=== PATIENT | female | born 1945 | race Caucasian/White ===

== ENCOUNTER → 2022-04-16 | Outpatient (CLI) | payer MEDICARE ==
[~2022-04-16] MED LIST: ACEDIPPM PO; Aspirin EC81 MG PO; LISHYD1012 PO; METO10 PO; OMEP20ER PO; OMEP40CA12 PO; ONDA4 PO; Prilosec Otc20 MG; TYLENOL PM EX-1 EAC1
[2022-04-16 14:01] LABS: BASOPHILS ABSOLUTE AUTO 0.02 K/mm3 (0.00-0.23); BASOPHILS PERCENT AUTO 0 % (0-2); EOSINOPHILS ABSOLUTE AUTO 0.02 K/mm3 (0.00-0.68); EOSINOPHILS PERCENT AUTO 0 % (0-6); Hematocrit 35.4 % (33.0-51.0); Hemoglobin 11.5 g/dL (11.5-16.0); IMMATURE GRAN ABSOLUTE AUTO 0.01 K/mm3 (0.00-0.10); IMMATURE GRAN PERCENT AUTO 0 % (0-1); LYMPHOCYTES ABSOLUTE AUTO 0.61 K/mm3 (0.84-5.20); LYMPHOCYTES PERCENT AUTO 14 % (21-46); MONOCYTES ABSOLUTE AUTO 0.33 K/mm3 (0.16-1.47); MONOCYTES PERCENT AUTO 7 % (4-13); Mean Corpuscular HGB 28.9 pg (26.0-34.0); Mean Corpuscular HGB Conc 32.5 g/dL (31.5-36.5); Mean Corpuscular Volume 89 fL (80-100); Mean Platelet Volume 9.1 fL (9.1-12.4); NEUTROPHILS PERCENT AUTO 78 % (41-73); Platelet Count 168 K/mm3 (150-400); RDW Coefficient Variation 14.8 % (11.7-14.2); RDW Standard Deviation 48.8 fL (35.1-46.3); Red Blood Cell Count 3.98 M/mm3 (3.80-5.20); White Blood Cell Count 4.49 K/mm3 (4.00-11.30)
[2022-04-16 14:23] LABS: Albumin, Blood 3.6 g/dL (3.4-5.0); Albumin/Globulin Ratio 0.8 (0.8-1.8); Bilirubin, Total 0.2 mg/dL (0.1-1.0); Bun/Creatinine Ratio 15.1 (12.0-20.0); Calcium, Blood 8.8 mg/dL (8.5-10.1); Creatinine, Blood 0.73 mg/dL (0.40-1.00); Globulin, Blood 4.3 g/dL (2.2-4.0); Magnesium, Blood 1.9 mg/dL (1.6-2.4); Potassium, Blood 3.5 mmol/L (3.5-5.5); Thyroid Stimulating Hormone 1.499 uIU/mL (0.360-4.800); Total Protein, Blood 7.9 g/dL (6.4-8.2)
== END ==
LOC: LAB SHORT 13:58 → LAB 13:58
PROVIDERS: Physician Assistant
DX: R53.83 Other fatigue (principal)
CPT/HCPCS: 80053; 83735; 84443; 85025

== ENCOUNTER 2022-07-11 22:22 | Inpatient (IN) | payer MEDICARE ==
[~2022-07-11] VITALS: Ht 157.5 cm; Wt 50.8 kg
[2022-07-11 22:59] LABS: BASOPHILS ABSOLUTE AUTO 0.04 K/mm3 (0.00-0.23); BASOPHILS PERCENT AUTO 0 % (0-2); EOSINOPHILS ABSOLUTE AUTO 0.16 K/mm3 (0.00-0.68); EOSINOPHILS PERCENT AUTO 2 % (0-6); Hematocrit 33.1 % (33.0-51.0); Hemoglobin 10.9 g/dL (11.5-16.0); IMMATURE GRAN ABSOLUTE AUTO 0.02 K/mm3 (0.00-0.10); IMMATURE GRAN PERCENT AUTO 0 % (0-1); LYMPHOCYTES ABSOLUTE AUTO 0.97 K/mm3 (0.84-5.20); LYMPHOCYTES PERCENT AUTO 9 % (21-46); MONOCYTES ABSOLUTE AUTO 0.74 K/mm3 (0.16-1.47); MONOCYTES PERCENT AUTO 7 % (4-13); Mean Corpuscular HGB 29.1 pg (26.0-34.0); Mean Corpuscular HGB Conc 32.9 g/dL (31.5-36.5); Mean Corpuscular Volume 89 fL (80-100); Mean Platelet Volume 9.3 fL (9.1-12.4); NEUTROPHILS ABSOLUTE AUTO 8.35 K/mm3 (1.96-9.15); NEUTROPHILS PERCENT AUTO 81 % (41-73); Platelet Count 305 K/mm3 (150-400); RDW Coefficient Variation 14.5 % (11.7-14.2); RDW Standard Deviation 46.7 fL (35.1-46.3); Red Blood Cell Count 3.74 M/mm3 (3.80-5.20); White Blood Cell Count 10.28 K/mm3 (4.00-11.30)
[2022-07-11 23:26] LABS: Albumin, Blood 3.6 g/dL (3.4-5.0); Albumin/Globulin Ratio 0.8 (0.8-1.8); Bilirubin, Total 0.3 mg/dL (0.1-1.0); Bun/Creatinine Ratio 20.2 (12.0-20.0); Calcium, Blood 9.8 mg/dL (8.5-10.1); Creatinine, Blood 0.65 mg/dL (0.40-1.00); Globulin, Blood 4.6 g/dL (2.2-4.0); Potassium, Blood 3.8 mmol/L (3.5-5.5); Total Protein, Blood 8.2 g/dL (6.4-8.2)
[2022-07-11] MEDS ORDERED: Ventolin/Prove6.7 GM INH (23:28)
[2022-07-11] MEDS ORDERED: WIXELA 250-501 EAC1 INH (23:29)
[2022-07-11] MEDS ORDERED: ASPI500 PO (23:30)
[2022-07-11] MEDS ORDERED: BENADRYL25 MG PO (23:30)
[2022-07-11 23:54] LABS: Source, Urine Clean Catch
[2022-07-12] LABS: Bilirubin, Urine Neg (Neg); Blood, Urine 1+ (Neg); Glucose Qualitative, Urine Neg (Neg); Ketones, Urine Neg (Neg); Leukocyte Esterase, Urine 1+ (Neg); Nitrite, Urine Neg (Neg); Protein, Urine 1+ (Neg); Specific Gravity, Urine 1.015 (1.003-1.022); Urobilinogen, Urine NORM (Normal)
[2022-07-12 00:19] LABS: Color, Urine Yellow (P-Yellow)
[2022-07-12 00:20] LABS: Appearance, Urine Clear (Clear)
[2022-07-12 00:21] LABS: Bacteria Few /hpf; Hyaline Casts 0-2 /lpf (0-2); Red Blood Cells, Urine 0-2 /hpf (0-2); Squamous Epithelial Cells Few /hpf (Few); White Blood Cells, Urine 0-2 /hpf (0-5)
[2022-07-12 01:22] LABS: International Normalized Ratio 0.98; Prothrombin Time Results 10.3 Sec (9.7-11.5)
--- NOTE | 2022-07-12 05:34 | NUR ---
SHIFT SUMMARY ASSUMED CARE OF PT AT 0300. PT IS A/OX4. HEART SOUNDS REGULAR. LUNG SOUNDS VERY COURSE PT SMOKED FOR MANY YEARS AND TAKES INHALERS AT HOME. PT STATES SHE WAS DIAGNOSED WITH EMPHYSEMA AT LAST DR RATLIFF. PT IS A SBA TO BATHROOM. PT HAS BRIGHT RED LIQUID STOOLS. PT HAS BEEN NPO SINCE ON THE FLOOR EXCEPT FOR PO TYLENOL FOR ABD CRAMPS. PT HAS SLEPT MOST OF THE MORNING.
[2022-07-12 06:50] LABS: BASOPHILS ABSOLUTE AUTO 0.05 K/mm3 (0.00-0.23); BASOPHILS PERCENT AUTO 1 % (0-2); EOSINOPHILS ABSOLUTE AUTO 0.11 K/mm3 (0.00-0.68); EOSINOPHILS PERCENT AUTO 1 % (0-6); Hematocrit 29.5 % (33.0-51.0); Hemoglobin 9.8 g/dL (11.5-16.0); IMMATURE GRAN ABSOLUTE AUTO 0.02 K/mm3 (0.00-0.10); IMMATURE GRAN PERCENT AUTO 0 % (0-1); LYMPHOCYTES ABSOLUTE AUTO 0.92 K/mm3 (0.84-5.20); LYMPHOCYTES PERCENT AUTO 8 % (21-46); MONOCYTES ABSOLUTE AUTO 0.66 K/mm3 (0.16-1.47); MONOCYTES PERCENT AUTO 6 % (4-13); Mean Corpuscular HGB 29.3 pg (26.0-34.0); Mean Corpuscular HGB Conc 33.2 g/dL (31.5-36.5); Mean Corpuscular Volume 88 fL (80-100); NEUTROPHILS ABSOLUTE AUTO 9.19 K/mm3 (1.96-9.15); NEUTROPHILS PERCENT AUTO 84 % (41-73); Platelet Count 280 K/mm3 (150-400); RDW Coefficient Variation 14.6 % (11.7-14.2); RDW Standard Deviation 47.1 fL (35.1-46.3); Red Blood Cell Count 3.34 M/mm3 (3.80-5.20); White Blood Cell Count 10.95 K/mm3 (4.00-11.30)
[2022-07-12 07:10] LABS: Bun/Creatinine Ratio 14.6 (12.0-20.0); Creatinine, Blood 0.62 mg/dL (0.40-1.00); Potassium, Blood 3.9 mmol/L (3.5-5.5)
--- NOTE | 2022-07-12 15:12 | NUR ---
PT HERE FROM [facility]. STATES SHE USES AN INHALER DAILY BUT HAS NOT USED TODAY AND IS SOB. DUONEB STARTED. History, Chart, Medications and Allergies reviewed before start of procedure.
[2022-07-12 16:43] LABS: Hematocrit 28.8 % (33.0-51.0); Hemoglobin 9.2 g/dL (11.5-16.0)
--- NOTE | 2022-07-12 16:51 | NUR ---
07/12/22 1651 Nick Bustamante HISTORY, CHART, MEDICATIONS AND ALLERGIES REVIEWED BEFORE START OF PROCEDURE. PATIENT CONFIRMS NPO STATUS AND AGREES WITH SCHEDULED PROCEDURE. 3-LEAD EKG REVIEWED WITH PHYSICIAN PRIOR TO START OF PROCEDURE. MONITOR INTACT WITH CONTINUOUS PULSE OXIMETRY,CAPNOGRAPHY, 3-LEAD EKG, INTERMITTENT BP. SUPPLEMENTAL O2 TO BE TITRATED THROUGHOUT PROCEDURE TO MAINTAIN O2 SATURATION ABOVE 90%. PATIENT DETERMINED TO BE ASA APPROPRIATE FOR PROPOFOL SEDATION PRIOR TO START OF PROCEDURE BY
--- NOTE | 2022-07-12 18:00 | NUR ---
SHIFT SUMMARY; ASSUMED CARE AT 0700. A/A/OX4 DURING SHIFT. REPORTS ABD DISCOMFORT BUT DENIES PAIN MEDS WHEN OFFERED. 1 SMALL BM DURING SHIFT, WITH 1 CLOT WITH BRIGHT RED BLOOD. EGD IN AFTERNOON. DIET ADVANCED TO CLEAR, TOLERATING WELL. LR INFUSING AT 100ML/HR. WILL CONTINUE TOMONITOR AND TREAT UNTIL CHANGE OF SHIFT.
--- NOTE | 2022-07-12 21:00 | NUR ---
ASSUMPTION OF CARE THIS RN ASSUMED CARE OF PATIENT AT 1900. REPORT TAKEN FROM DAVIDA BAZZI. PATIENT IS ALERT AND ORIENTED FULLY. ABLE TO MAKE NEEDS KNOWN AND CALLS APPROPRIATELY. VITALS STABLE AT THIS TIME. BREATHING TREATMENTS PRN. DENIES PAIN AT THIS TIME. STATES SHE OCCASIONALLY GETS ABDOMINAL PAIN AND STILL HAS BLOOD IN STOOL. WILL CONTINUE TO MONITOR. BED IN LOWEST POSITION AND CALL LIGHT WITHIN REACH.
[2022-07-13 04:04] LABS: Hematocrit 29.1 % (33.0-51.0); Hemoglobin 9.2 g/dL (11.5-16.0)
--- NOTE | 2022-07-13 05:10 | NUR ---
SHIFT SUMMARY NO ACUTE CHANGES DURING THIS SHIFT. PATIENT REPORTS GOING TO THE RESTROOM 2X DURING THIS SHIFT WITHOUT NOTING BLOOD IN TOILET. VITALS STABLE. PRN BREATHING TREATMENTS GIVEN X1. PATIENT CALLS APPROPRIATELY AND IS A SBA TO THE BATHROOM. STEADY GAIT NOTED. BED IN LOWEST POSITION AND CALL LIGHT WITHIN REACH. THIS RN WILL CONTINUE OT MONITOR UNTIL SHIFT CHANGE AT 0700.
--- NOTE | 2022-07-13 08:55 | NUR ---
ASSUMED CARE OF PT AT 0700. PT STATES SHE IS FEELING WELL THIS AM, ABLE TO WALK TO THE RESTROOM WITH SBA. BACK TO BED, NO COMPLAINTS. AT 0830 PT C/O DIZZINESS AND FEELING UNWELL. SEE DOCUMENTED VS. PT ASSESSED AND CRACKLES NOTED TO BILATERAL LUNG BASES. SP02 96% ON RA. DR VEGA NOTIFIED AND NEW ORDERS RECEIVED. WILL CONTINUE TO MONITOR AND NOTIFY MD OF FUTHER CHANGES. PT ABLE TO USE CALL LIGHT FOR NEEDS, CALL LIGHT IN REACH.
[2022-07-13 09:08] LABS: BASOPHILS ABSOLUTE AUTO 0.06 K/mm3 (0.00-0.23); BASOPHILS PERCENT AUTO 1 % (0-2); EOSINOPHILS ABSOLUTE AUTO 0.31 K/mm3 (0.00-0.68); EOSINOPHILS PERCENT AUTO 4 % (0-6); Hematocrit 31.2 % (33.0-51.0); Hemoglobin 10.1 g/dL (11.5-16.0); IMMATURE GRAN ABSOLUTE AUTO 0.01 K/mm3 (0.00-0.10); IMMATURE GRAN PERCENT AUTO 0 % (0-1); LYMPHOCYTES ABSOLUTE AUTO 0.89 K/mm3 (0.84-5.20); LYMPHOCYTES PERCENT AUTO 11 % (21-46); MONOCYTES ABSOLUTE AUTO 0.58 K/mm3 (0.16-1.47); MONOCYTES PERCENT AUTO 7 % (4-13); Mean Corpuscular HGB 29.1 pg (26.0-34.0); Mean Corpuscular HGB Conc 32.4 g/dL (31.5-36.5); Mean Corpuscular Volume 90 fL (80-100); Mean Platelet Volume 9.1 fL (9.1-12.4); NEUTROPHILS ABSOLUTE AUTO 6.17 K/mm3 (1.96-9.15); NEUTROPHILS PERCENT AUTO 77 % (41-73); Platelet Count 283 K/mm3 (150-400); RDW Coefficient Variation 14.6 % (11.7-14.2); RDW Standard Deviation 48.1 fL (35.1-46.3); Red Blood Cell Count 3.47 M/mm3 (3.80-5.20); White Blood Cell Count 8.02 K/mm3 (4.00-11.30)
[2022-07-13 09:23] LABS: Bun/Creatinine Ratio 7.4 (12.0-20.0); Creatinine, Blood 0.67 mg/dL (0.40-1.00); Potassium, Blood 3.4 mmol/L (3.5-5.5)
--- NOTE | 2022-07-13 18:45 | NUR ---
NO ACUTE CHANGES SINCE LAST NOTE. PT STATES SHE IS FEELING BACK TO BASELINE. PT APPEARS ANXIOUS AT TIMES, SHE IS HOPEFUL SHE WILL BE DISCHARGED TOMORROW. PT ABLE TO USE CALL LIGHT FOR NEEDS, CALL LIGHT IN REACH, WILL CONTINUE TO MONITOR AND GIVE REPORT TO NOC SHIFT RN.
[2022-07-14 03:48] LABS: BASOPHILS ABSOLUTE AUTO 0.05 K/mm3 (0.00-0.23); BASOPHILS PERCENT AUTO 1 % (0-2); EOSINOPHILS ABSOLUTE AUTO 0.41 K/mm3 (0.00-0.68); EOSINOPHILS PERCENT AUTO 6 % (0-6); Hematocrit 27.8 % (33.0-51.0); Hemoglobin 9.1 g/dL (11.5-16.0); IMMATURE GRAN ABSOLUTE AUTO 0.02 K/mm3 (0.00-0.10); IMMATURE GRAN PERCENT AUTO 0 % (0-1); LYMPHOCYTES ABSOLUTE AUTO 1.02 K/mm3 (0.84-5.20); LYMPHOCYTES PERCENT AUTO 15 % (21-46); MONOCYTES PERCENT AUTO 9 % (4-13); Mean Corpuscular HGB 29.4 pg (26.0-34.0); Mean Corpuscular HGB Conc 32.7 g/dL (31.5-36.5); Mean Corpuscular Volume 90 fL (80-100); Mean Platelet Volume 9.3 fL (9.1-12.4); NEUTROPHILS ABSOLUTE AUTO 4.64 K/mm3 (1.96-9.15); NEUTROPHILS PERCENT AUTO 69 % (41-73); Platelet Count 260 K/mm3 (150-400); RDW Coefficient Variation 14.6 % (11.7-14.2); RDW Standard Deviation 47.5 fL (35.1-46.3); White Blood Cell Count 6.74 K/mm3 (4.00-11.30)
[2022-07-14 04:06] LABS: Calcium, Blood 8.8 mg/dL (8.5-10.1); Creatinine, Blood 0.62 mg/dL (0.40-1.00); Potassium, Blood 3.1 mmol/L (3.5-5.5)
--- NOTE | 2022-07-14 06:32 | NUR ---
EGG PACKER SUMMARY ASSUMED CARE OF THE PT AT 1900. SHE IS ALERT AND ORIENTED X4, INDEPENDENT IN THE ROOM EXCEPT WHEN NEEDING TO BE UNHOOKED FROM IV. PT APPEARS ANXIOUS BUT REFUSING ANY MEDICATION TO HELP HER SLEEP. GIVEN 1 DOSE OF TYLENOL FOR PAIN IN HER LEGS TO HELP SLEEP. PT MOVES AROUND IN BED INDEPENDENTLY. ON IV ZOSYN FOR COLITIS. PT DENIES ANY BLOOD IN HER BMS AND REPORTS NO ABDOMINAL PAIN. SHE WAS CHANGED TO MEDICAL STATUS AT THE BEGINNING OF THE SHIFT AND APPEARS STABLE. PT REQUESTING TO BE DISCHARGED TODAY.
--- NOTE | 2022-07-14 10:19 | NUR ---
CARE ASSUMPTION THIS RN ASSUMED CARE AT 0700. VSS. MED STATUS NO TELE. PATIENT IS ALERT AND ORIENTED X4. PERRLA. PATIENT REPROTS NO PAIN. PATIENT REPORTS NO SHORTNESS OF BREATH, CLEAR UPPER LOBES AND DIM LOWER LOBES. PATIENT REPORTS NO CHEST PAIN/PRESSURE. BP STABLE. PATIENT HAD A BOWEL MOVEMENT THIS MORNING AND IT WAS DARK BROWN WITH A TINT OF BLACK, FORMED AND PEBBLE APPERANCE. PATIENT SKIN IS FARGLE BUT CLEAN DRY. SEE SHIFT ASSESSMENT FOR FURTHER DETIALS. PATIENT IS INDEPDENT IN THE ROOM AND CALLS IF NEEDING ASSITANCE. PATIENT PERFORMS ADLS INDEPDENTLY. MD VEGA IN TO SEE PATIENT THIS AM AND DISCUSSED PLAN OF CARE. PLAN OF CARE IS UP TO DATE. CALL LIGHT WITHIN REACH AND BED IN LOWEST POSITION.
[2022-07-14] MEDS ORDERED: VISBIOME 112.51 EACH PO (13:11)
[2022-07-14] MEDS ORDERED: LEVO750 PO (13:14)
[2022-07-14] MEDS ORDERED: METR500 PO (13:15)
--- NOTE | 2022-07-14 13:43 | NUR ---
DISCHARGE THIS RN WENT OVER DISCHARGE EDUCATION AND NEW MEDICATIONS AND FOLLOW UP APPOINTMENTS. PATIENT VERABLIZED UNDERSTANDING AND ASKED QUESTIONS. PATIENT LEFT IN NO DISTRESS. PATIENT LEFT WITH ALL BELONGINGS. PATIENT LEFT VIA WHEELCHAIR.
== END 2022-07-14 13:50 | disposition home or self-care (01) | DRG 394 ==
LOC: ER 22:22 → PCU 22:23
PROVIDERS: Emergency Medicine; Family Medicine; Student in an Organized Health Care Education/Training Program; ADMIT Internal Medicine
PROC: 0DJ08ZZ Inspection of Upper Intestinal Tract, Via Natural or Artificial Opening Endoscopic (ICD-10-PCS; principal; 2022-07-13)
PROC: 0DBM8ZX Excision of Descending Colon, Via Natural or Artificial Opening Endoscopic, Diagnostic (ICD-10-PCS; 2022-07-13)
DX: K55.9 Vascular disorder of intestine, unspecified (principal); D62 Acute posthemorrhagic anemia; K62.5 Hemorrhage of anus and rectum; Z66 Do not resuscitate; I10 Essential (primary) hypertension; Z28.21 Immunization not carried out because of patient refusal; Z87.891 Personal history of nicotine dependence; Z87.11 Personal history of peptic ulcer disease; Z90.10 Acquired absence of unspecified breast and nipple; Z88.5 Allergy status to narcotic agent; Z88.6 Allergy status to analgesic agent; Z79.51 Long term (current) use of inhaled steroids; Z79.82 Long term (current) use of aspirin; Z79.899 Other long term (current) drug therapy
CPT/HCPCS: 36415; 74177; 80048; 80053; 81001; 82272; 83690; 84484; 85014; 85018; 85025; 85610; 85730; 86850; 86900; 86901; 87086; 88305; 93005; 93010; 94640; 94664; 94760; 96374; 96375; 96376; 99285-25; A9270; C9113; G0378; J2060; J2405; J2543; J2704; J7050; J7120; Q9967

== ENCOUNTER 2022-12-21 12:14 | Day surgery (SDC) | payer MEDICARE ==
[~2022-12-21] VITALS: Ht 157.5 cm; Wt 49.9 kg
[~2022-12-21 12:14] MED LIST changes: +ASPI500 PO; +BENADRYL25 MG PO; +LEVO750 PO; +METR500 PO; +VISBIOME 112.51 EACH PO; +Ventolin/Prove6.7 GM INH; +WIXELA 250-501 EAC1 INH
[2022-12-21 16:58] VITALS: BP 130/87
== END 2022-12-21 16:45 | disposition home or self-care (01) ==
LOC: ORSCSDS 12:14
PROVIDERS: Student in an Organized Health Care Education/Training Program
PROC: 0DBP8ZX Excision of Rectum, Via Natural or Artificial Opening Endoscopic, Diagnostic (ICD-10-PCS; principal; 2022-12-21 14:00)
PROC: 0DBK8ZX Excision of Ascending Colon, Via Natural or Artificial Opening Endoscopic, Diagnostic (ICD-10-PCS; principal; 2022-12-21 14:00)
PROC: 0DB98ZX Excision of Duodenum, Via Natural or Artificial Opening Endoscopic, Diagnostic (ICD-10-PCS; principal; 2022-12-21 14:00)
PROC: 0DB68ZX Excision of Stomach, Via Natural or Artificial Opening Endoscopic, Diagnostic (ICD-10-PCS; principal; 2022-12-21 14:00)
DX: D50.9 Iron deficiency anemia, unspecified (principal); Z86.010 Personal history of colon polyps; D12.2 Benign neoplasm of ascending colon; K62.1 Rectal polyp; K22.2 Esophageal obstruction; K57.50 Diverticulosis of both small and large intestine without perforation or abscess without bleeding; K29.40 Chronic atrophic gastritis without bleeding; K29.80 Duodenitis without bleeding; J44.9 Chronic obstructive pulmonary disease, unspecified; I10 Essential (primary) hypertension; Z87.11 Personal history of peptic ulcer disease; Z87.891 Personal history of nicotine dependence; Z79.899 Other long term (current) drug therapy
CPT/HCPCS: 88305; 88342; J2704

== ENCOUNTER 2024-10-30 21:08 | Emergency (ER) | payer MEDICARE ==
[~2024-10-30] VITALS: Ht 157.5 cm; Wt 68.0 kg
[2024-10-30 21:31] VITALS: BP 126/106
== END 2024-10-30 23:34 | disposition home or self-care (01) ==
LOC: ER 21:08
DX: R04.0 Epistaxis (principal); I10 Essential (primary) hypertension; Z87.891 Personal history of nicotine dependence; Z88.5 Allergy status to narcotic agent
CPT/HCPCS: 80048; 85025; 99283

== ENCOUNTER → 2024-10-30 | Outpatient (CLI) | payer MEDICARE ==
[2024-10-30 13:42] LABS: BASOPHILS ABSOLUTE AUTO 0.07 K/mm3 (0.00-0.23); BASOPHILS PERCENT AUTO 1 % (0-2); EOSINOPHILS ABSOLUTE AUTO 0.39 K/mm3 (0.00-0.68); EOSINOPHILS PERCENT AUTO 7 % (0-6); Hematocrit 35.4 % (33.0-51.0); Hemoglobin 11.6 g/dL (11.5-16.0); IMMATURE GRAN ABSOLUTE AUTO 0.02 K/mm3 (0.00-0.10); IMMATURE GRAN PERCENT AUTO 0 % (0-1); LYMPHOCYTES ABSOLUTE AUTO 0.84 K/mm3 (0.84-5.20); LYMPHOCYTES PERCENT AUTO 15 % (21-46); MONOCYTES ABSOLUTE AUTO 0.62 K/mm3 (0.16-1.47); MONOCYTES PERCENT AUTO 11 % (4-13); Mean Corpuscular HGB 29.4 pg (26.0-34.0); Mean Corpuscular HGB Conc 32.8 g/dL (31.5-36.5); Mean Corpuscular Volume 90 fL (80-100); Mean Platelet Volume 9.1 fL (9.1-12.4); NEUTROPHILS ABSOLUTE AUTO 3.82 K/mm3 (1.96-9.15); NEUTROPHILS PERCENT AUTO 66 % (41-73); Platelet Count 250 K/mm3 (150-400); RDW Coefficient Variation 15.2 % (11.7-14.2); RDW Standard Deviation 50.7 fL (35.1-46.3); Red Blood Cell Count 3.95 M/mm3 (3.80-5.20); White Blood Cell Count 5.76 K/mm3 (4.00-11.30)
[2024-10-30 13:52] LABS: Bun/Creatinine Ratio 14.7 (12.0-20.0); Calcium, Blood 9.5 mg/dL (8.5-10.1); Creatinine, Blood 0.75 mg/dL (0.40-1.00); Potassium, Blood 3.9 mmol/L (3.5-5.5)
== END ==
LOC: LAB 13:37 → LAB SHORT 13:37
PROVIDERS: Physician Assistant Medical
DX: R04.0 Epistaxis (principal)
CPT/HCPCS: 80048; 85025

== ENCOUNTER → 2025-05-28 | Outpatient (CLI) | payer MEDICARE ==
[2025-05-28 15:11] LABS: BASOPHILS ABSOLUTE AUTO 0.08 K/mm3 (0.00-0.23); BASOPHILS PERCENT AUTO 1 % (0-2); EOSINOPHILS ABSOLUTE AUTO 0.17 K/mm3 (0.00-0.68); EOSINOPHILS PERCENT AUTO 2 % (0-6); Hematocrit 36.2 % (33.0-51.0); Hemoglobin 11.9 g/dL (11.5-16.0); IMMATURE GRAN ABSOLUTE AUTO 0.03 K/mm3 (0.00-0.10); IMMATURE GRAN PERCENT AUTO 0 % (0-1); LYMPHOCYTES ABSOLUTE AUTO 0.66 K/mm3 (0.84-5.20); LYMPHOCYTES PERCENT AUTO 8 % (21-46); MONOCYTES ABSOLUTE AUTO 0.70 K/mm3 (0.16-1.47); MONOCYTES PERCENT AUTO 8 % (4-13); Mean Corpuscular HGB Conc 32.9 g/dL (31.5-36.5); Mean Corpuscular Volume 91 fL (80-100); NEUTROPHILS ABSOLUTE AUTO 6.78 K/mm3 (1.96-9.15); NEUTROPHILS PERCENT AUTO 81 % (41-73); NRBC ABSOLUTE 0.00 K/mm3 (0.00-0.02); NRBC Auto 0.0 /100 WBC (0.0-0.2); Platelet Count 273 K/mm3 (150-400); RDW Coefficient Variation 13.4 % (11.7-14.2); RDW Standard Deviation 45.2 fL (35.1-46.3)
[2025-05-28 15:24] LABS: Alanine Aminotransfer (ALT/SGP 21.0 U/L (12-78); Albumin, Blood 4.1 g/dL (3.4-5.0); Albumin/Globulin Ratio 0.8 (0.8-1.8); Anion Gap 14.0 mmol/L (3-11); Aspartate Aminotrans (AST/SGOT 19.0 U/L (12-37); Bilirubin, Total 0.2 mg/dL (0.1-1.0); Blood Urea Nitrogen 9.0 mg/dL (8-24); CO2, Blood 29.0 mmol/L (21-32); Calcium, Blood 9.6 mg/dL (8.5-10.1); Chloride, Blood 97.0 mmol/L (98-108); Creatinine, Blood 0.68 mg/dL (0.40-1.00); Globulin, Blood 4.9 g/dL (2.2-4.0); Glucose, Blood 116.0 mg/dL (70-99); Magnesium, Blood 1.9 mg/dL (1.6-2.4); Potassium, Blood 3.8 mmol/L (3.5-5.5); Sodium, Blood 136.0 mmol/L (136-145); Total Protein, Blood 9.0 g/dL (6.4-8.2)
== END ==
LOC: LAB SHORT 15:07 → LAB 15:07
PROVIDERS: Physician Assistant
DX: R53.83 Other fatigue (principal)
CPT/HCPCS: 80053; 83735; 85025